=== PATIENT | female | born 1935 | race Two or more races ===

== ENCOUNTER 2017-05-19 15:15 | Emergency (ER) | payer OTHER, MEDICAID ==
[~2017-05-19] VITALS: Ht 165.1 cm; Wt 77.1 kg
[2017-05-19 15:48] VITALS: BP 162/77
[2017-05-19 16:14] LABS: Basophils # (auto) 0 uL; Basophils % (auto) 0.1 % (0.0-2.0); Eosinophils # (auto) 0 uL; Eosinophils % (auto) 0.1 % (0.0-7.0); Hematocrit 35.5 % (36.0-46.0); Hemoglobin 11.5 g/dL (12.2-16.2); Lymphocytes # (auto) 0.7 uL; Lymphocytes % (auto) 4.7 % (10.0-50.0); Mean Corpuscular Hemoglobin 29.4 pg (28.0-32.0); Mean Corpuscular Hgb Conc. 32.5 g/dL (32.0-36.0); Mean Corpuscular Volume 90.5 fL (80.0-100.0); Monocytes # (auto) 0.4 uL; Monocytes % (auto) 3.1 % (0.0-12.0); Platelet Count (auto) 216 10^3/uL (140-450); Red Blood Cells 3.92 10^6/uL (4.0-5.20); White Blood Cell 14.2 10^3/uL (4.4-10.8)
[2017-05-19 16:30] LABS: Albumin 3.1 g/dL (3.4-5.0); BUN/Creatinine Ratio 28.5; Calcium 8.5 mg/dL (8.5-10.1); Potassium 3.6 mmol/L (3.5-5.1)
[2017-05-19 16:33] LABS: Bilirubin, Total 0.3 mg/dL (0.2-1.0)
[2017-05-19] MEDS ORDERED: HYDROmorphone HCL 2 MG/ML VL IV ONE (19:15)
[2017-05-19] MEDS ORDERED: ONDANSETRON HCL 4 MG/2 ML VIAL IV ONE (19:15)
[2017-05-19 23:11] LABS: Urine Bacteria FEW /hpf (None Seen); Urine Blood 1+ /uL (Negative); Urine Specific Gravity 1.013 (1.001-1.035); Urine WBC 79 /hpf (0 - 5)
[2017-05-19] MEDS ORDERED: cefTRIAXone 1GM/10ml IVPUSH 10 ML IV ONE (23:30)
== END 2017-05-20 01:16 | disposition home or self-care (01) ==
LOC: ER 15:15 → EDBD 15:15 → ER 05-20 01:00
DX: N39.0 Urinary tract infection, site not specified (principal); J21.9 Acute bronchiolitis, unspecified; I25.2 Old myocardial infarction; I13.0 Hypertensive heart and chronic kidney disease with heart failure and stage 1 through stage 4 chronic kidney disease, or unspecified chronic kidney disease; N18.9 Chronic kidney disease, unspecified; I50.9 Heart failure, unspecified
CPT/HCPCS: 36415; 51702; 70450; 71045; 71250; 74176; 80053; 81001; 83880; 84484; 85025; 93005; 96374; 96375; 99285; J1170; J2405; 96365